=== PATIENT | male | born 1980 | race Asian ===

== ENCOUNTER 2022-08-07 21:00 | Emergency (ER) | payer OTHER ==
[~2022-08-07] VITALS: Ht 165.1 cm; Wt 54.4 kg
[2022-08-07 21:53] VITALS: BP 128/88; TEMP 98.1
== END 2022-08-07 21:53 | disposition home or self-care (01) ==
LOC: ED 21:00
DX: M26.602 Left temporomandibular joint disorder, unspecified (principal); H65.192 Other acute nonsuppurative otitis media, left ear; H61.23 Impacted cerumen, bilateral
CPT/HCPCS: 96372; 99283; J0696; J1885